=== PATIENT | female | born 1940 | race Caucasian/White ===

== ENCOUNTER 2024-05-14 09:54 | Outpatient (CLI) | payer MEDICARE, OTHER | END 2024-05-14 09:55 | disposition home or self-care (01) | LOC: CSHCT 09:54 | PROVIDERS: ATTEND Orthopaedic Surgery | DX: Z01.818 Encounter for other preprocedural examination (principal); M17.12 Unilateral primary osteoarthritis, left knee; M25.462 Effusion, left knee ==